=== PATIENT | male | born 1960 | race Caucasian/White ===

== ENCOUNTER 2021-02-11 15:29 | Inpatient (IN) | payer OTHER ==
[~2021-02-11] VITALS: Ht 175.3 cm; Wt 74.4 kg
[2021-02-11 16:16] LABS: MEAN CORPUSCULAR VOLUME 90.5 FL (78-98)
[2021-02-11 16:17] LABS: BASOPHILS # (AUTO) 0.1 X10'3 (0-0.2); BASOPHILS % (AUTO) 0.6 % (0-1); EOSINOPHILS % (AUTO) 0.1 % (0-6); HEMATOCRIT 39.4 % (42.0-52.0); HEMOGLOBIN 13.8 g/dl (14.0-17.9); LYMPHOCYTES # (AUTO) 1.4 X10'3 (1.1-4.8); LYMPHOCYTES % (AUTO) 7.4 % (21-51); MEAN CORPUSCULAR HEMOGLOBIN 31.6 PG (27.0-31.0); MEAN PLATELET VOLUME 7.7 FL (7.4-10.4); MONOCYTES # (AUTO) 0.9 X10'3 (0-0.9); MONOCYTES % (AUTO) 4.8 % (2-12); NEUTROPHILS # (AUTO) 16.7 X10'3 (1.8-7.7); NEUTROPHILS % (AUTO) 87.1 % (42-75); PLATELET COUNT 613 X10'3 (140-440); RED BLOOD COUNT 4.36 X10'6 (4.70-6.10); RED CELL DISTRIBUTION WIDTH 13.8 % (11.5-14.5); WHITE BLOOD COUNT 19.2 X10'3 (4.5-11.0)
[2021-02-11 16:28] LABS: D-DIMER 4.25 MG/L FEU (0-0.50)
[2021-02-11 16:32] LABS: ALANINE AMINOTRANSFERASE 74 U/L (12-78); ALBUMIN 2.5 G/DL (3.4-5.0); ALBUMIN/GLOBULIN RATIO 0.4 (1.1-1.5); ALKALINE PHOSPHATASE 112 IU/L (46-116); ANION GAP 11 (8-16); ASPARTATE AMINO TRANSFERASE 19 U/L (10-37); BILIRUBIN,TOTAL 0.9 MG/DL (0.1-1.0); BLOOD UREA NITROGEN 13 MG/DL (7-18); BUN/CREATININE RATIO 17.6 (5.4-32.0); CALCIUM 9.3 MG/DL (8.5-10.1); CHLORIDE 97 MMOL/L (99-107); CREATININE 0.74 MG/DL (0.60-1.10); GLUCOSE 124 MG/DL (70-104); POTASSIUM 3.9 MMOL/L (3.5-5.1); SODIUM 136 MMOL/L (135-145); TOTAL CARBON DIOXIDE 27.8 MMOL/L (24-32); TOTAL PROTEIN 8.3 G/DL (6.4-8.2); eGFR > 90 ML/MIN
[2021-02-11] MEDS ORDERED: iohexol 350MG/ML 100ml bottle IV ONE (19:49)
[2021-02-11] MEDS ORDERED: morphine 4 MG/ML inj SYRINge IV ONE (21:20)
[2021-02-11 21:40] LABS: CLARITY,URINE CLEAR (Clear); COLOR,URINE DARK YELLOW (Yellow); UA COLLECTION TYPE CLN CATCH MIDSTREAM
[2021-02-11 21:41] LABS: PROTEIN,URINE 300 mg/dl (Neg)
[2021-02-11 21:42] LABS: GLUCOSE, URINE NEGATIVE (Neg); KETONES,URINE 80 mg/dl (Neg); LEUKOCYTE ESTERASE ,URINE NEGATIVE (Neg); NITRITES, URINE NEGATIVE (Neg); OCCULT BLOOD,URINE NEGATIVE (Neg); UROBILINOGEN,URINE 0.2 E.U/dL (0.2-1.0)
[2021-02-11 21:46] LABS: HYALINE CASTS 0-3 /LPF (NEGATIVE)
[2021-02-11 21:47] LABS: CELLULAR CAST 0-4 /LPF (NEGATIVE); SQUAMOUS EPITHELIAL CELL,UR FEW /LPF (FEW)
[2021-02-11 21:48] LABS: BACTERIA,URINE FEW /HPF (Neg); RBC,URINE 0-2 /HPF (0-2)
[2021-02-11 21:49] LABS: WBC CLUMPS,URINE FEW /HPF (NEGATIVE)
[2021-02-11] MEDS ORDERED: NO HOME MEDS (22:10)
[2021-02-11] MEDS ORDERED: CefTRIAXone/D5W-Rocephin 1gm 50 ML IV ONE (22:20)
[2021-02-11] MEDS ORDERED: azithromycin/NS 500mg/250ml 250 ML IV ONE (22:20)
[2021-02-12] VITALS (9 sets, daily range): BP systolic 121–138; BP diastolic 72–85
[2021-02-12] MEDS ORDERED: potassium Cl 40MEQ/1/2NS 520ml 520 ML IV PRN ×2 (00:05)
[2021-02-12] MEDS ORDERED: mag hydrox/Alum hydrox/simeth 30ml oral suspension PO PRN (00:05)
[2021-02-12] MEDS ORDERED: acetaminophen 325mg tablet PO PRN (00:05)
[2021-02-12] MEDS: normal saline 1000ml 1,000 ML IV SCH ×3 (00:05→20:05)
[2021-02-12] MEDS ORDERED: potassium Cl 20 mEq SR tablet PO PRN ×2 (00:05)
[2021-02-12] MEDS ORDERED: ondansetron/PF 4mg/2ml inj IV PRN (00:05)
[2021-02-12] MEDS ORDERED: magnesium hydroxide 30ml (MOM) UD suspension PO PRN (00:05)
[2021-02-12 00:38] LABS: ALBUMIN,BODY FLUID 1.8 G/DL; LDH,BODY FLUID 850 U/L
[2021-02-12 01:51] LABS: BF WBC COUNT 805 /CU MM (0-1000); BFAPPEAR HAZY; BFCOLOR YELLOW; BFVOLUME 20 ML
[2021-02-12 01:52] LABS: BF RBC COUNT 520 /CU MM; LYMPHOCYTES,BODY FLUID 10 %; NEUTROPHILS,BODY FLUID 78 %
[2021-02-12 01:54] LABS: MONOCYTES,BODY FLUID 12 %
--- NOTE | 2021-02-12 02:35 | NUR ---
Received report from SUKUMAR Ga. Awaiting patient arrival to floor from ER.
--- NOTE | 2021-02-12 03:20 | NUR ---
Pt arrived to surgical floor at 0320 via gurney accompanied by CAMPGROUND ATTENDANT. Placed in RM 355A. Pt Aox3. Pt continued on 2LBNC. No apparent distress noted. Call light and items of frequent use within reach. Will continue to monitor.
--- NOTE | 2021-02-12 06:31 | NUR ---
Problems reprioritized. Patient report given, questions answered & plan of care reviewed with SUKUMAR Wiseman.
[2021-02-12] MEDS ORDERED: CefTRIAXone/D5W-Rocephin 1gm 50 ML IV SCH (08:00)
[2021-02-12] MEDS ORDERED: K and/or MAG REPLACEMENT MC SCH (08:00)
[2021-02-12] MEDS: docusate sod 100mg capsule PO SCH ×2 (08:08→20:23)
[2021-02-12] MEDS: azithromycin 250mg tablet PO SCH (08:09)
[2021-02-12] MEDS: heparin, porcine 5000 units/ml vial SQ SCH ×2 (08:17→20:22)
[2021-02-12] MEDS ORDERED: magnesium Cl slow-release 64mg tablet PO PRN (08:55)
[2021-02-12] MEDS ORDERED: magnesium 4gm in 100ml NS 100 ML IV PRN (08:55)
[2021-02-12] MEDS ORDERED: vancomycin/NS 1 GM ADD-VANTAGE 250 ML IV SCH (10:00)
--- NOTE | 2021-02-12 10:27 | NUR ---
Pt in procedure will hang Vanco when pt comes back
[2021-02-12] MEDS ORDERED: tPA-cathflo 2 MG/2 ml IV flush ONE (12:20)
--- NOTE | 2021-02-12 13:15 | NUR ---
Page Sent PAGER ID: [phone] MESSAGE: [phone] Tatianna EMMANUEL, PT HAD A REACTION TO VANCO, BROKE OUT IN A RASH. STOPPED THE VANCO. PT DOES NOT WANT BENEDRYL SAYS IT MAKES HIM FEEL WEIRD. AIRWAY IS OPEN AND PT STATES HE FEELS FINE. OMAIRA [id number]
[2021-02-12] MEDS ORDERED: cetirizine 10mg tablet PO PRN (13:35)
--- NOTE | 2021-02-12 15:08 | NUR ---
Page Sent PAGER ID: [phone] MESSAGE: [id number] EMMANUEL, PT ONLY HAS IV MORPHINE FOR PAIN. CAN I ORDER A PO NORCO 5 OR 10? HE HAS A PAIN 5/10. OMAIRA 0135
[2021-02-12] MEDS: morphine 2 MG/ML inj. syringe IV PRN ×2 (15:59→20:22)
[2021-02-12] MEDS: piperacillin/tazo 3.375gm/50ml 50 ML IV SCH (16:01)
--- NOTE | 2021-02-12 18:42 | NUR ---
Problems reprioritized. Patient report given, questions answered & plan of care reviewed with MOMO PATINO.
[2021-02-12] MEDS ORDERED: Permethrin 1% 59ml topical rinse TP ONE (18:45)
[2021-02-12] MEDS ORDERED: Permethrin Cream 60gm TP ONE (18:45)
[2021-02-12] MEDS: K and/or MAG REPLACEMENT MC SCH (20:00)
[2021-02-12] MEDS: lactobacillus rhamnosus 10,000 MMU CELLS/CAPSULE PO SCH (20:23)
[2021-02-13] VITALS: BP 122/76
[2021-02-13] MEDS: piperacillin/tazo 3.375gm/50ml 50 ML IV SCH ×3 (01:33→17:31)
[2021-02-13 06:53] LABS: BASOPHILS # (AUTO) 0.1 X10'3 (0-0.2); BASOPHILS % (AUTO) 0.9 % (0-1); EOSINOPHILS # (AUTO) 0.1 X10'3 (0-0.9); EOSINOPHILS % (AUTO) 0.9 % (0-6); HEMOGLOBIN 12.1 g/dl (14.0-17.9); LYMPHOCYTES # (AUTO) 1.4 X10'3 (1.1-4.8); MEAN CORPUSCULAR HEMOGLOBIN 30.9 PG (27.0-31.0); MEAN CORPUSCULAR HGB CONC 33.7 g/dL (33.0-36.5); MEAN CORPUSCULAR VOLUME 91.7 FL (78-98); MEAN PLATELET VOLUME 8.2 FL (7.4-10.4); MONOCYTES # (AUTO) 0.9 X10'3 (0-0.9); MONOCYTES % (AUTO) 9.4 % (2-12); NEUTROPHILS # (AUTO) 7.2 X10'3 (1.8-7.7); NEUTROPHILS % (AUTO) 74.8 % (42-75); PLATELET COUNT 477 X10'3 (140-440); RED BLOOD COUNT 3.93 X10'6 (4.70-6.10); RED CELL DISTRIBUTION WIDTH 14.1 % (11.5-14.5); WHITE BLOOD COUNT 9.7 X10'3 (4.5-11.0)
[2021-02-13 07:16] LABS: ALANINE AMINOTRANSFERASE 148 U/L (12-78); ALBUMIN 1.8 G/DL (3.4-5.0); ALBUMIN/GLOBULIN RATIO 0.4 (1.1-1.5); ALKALINE PHOSPHATASE 127 IU/L (46-116); ANION GAP 9 (8-16); ASPARTATE AMINO TRANSFERASE 64 U/L (10-37); BILIRUBIN,TOTAL 0.6 MG/DL (0.1-1.0); BLOOD UREA NITROGEN 14 MG/DL (7-18); BUN/CREATININE RATIO 23.7 (5.4-32.0); CALCIUM 8.3 MG/DL (8.5-10.1); CHLORIDE 101 MMOL/L (99-107); CREATININE 0.59 MG/DL (0.60-1.10); GLUCOSE 101 MG/DL (70-104); MAGNESIUM 2.2 MG/DL (1.5-2.4); PHOSPHORUS 3.7 MG/DL (2.3-4.5); SODIUM 138 MMOL/L (135-145); TOTAL CARBON DIOXIDE 28.2 MMOL/L (24-32); TOTAL PROTEIN 6.5 G/DL (6.4-8.2); eGFR > 90 ML/MIN
[2021-02-13 07:21] LABS: POTASSIUM 3.9 MMOL/L (3.5-5.1)
[2021-02-13] MEDS: azithromycin 250mg tablet PO SCH (07:55)
[2021-02-13] MEDS: docusate sod 100mg capsule PO SCH ×2 (07:55→20:00)
[2021-02-13] MEDS: heparin, porcine 5000 units/ml vial SQ SCH ×2 (07:58→20:05)
[2021-02-13] MEDS: morphine 2 MG/ML inj. syringe IV PRN ×2 (07:59→11:33)
[2021-02-13 08:00] VITALS: BP 130/78
[2021-02-13] MEDS: normal saline 1000ml 1,000 ML IV SCH ×2 (08:00→16:05)
[2021-02-13] MEDS: K and/or MAG REPLACEMENT MC SCH ×2 (08:00→19:05)
[2021-02-13] MEDS: lactobacillus rhamnosus 10,000 MMU CELLS/CAPSULE PO SCH ×2 (08:05→20:05)
[2021-02-13] MEDS ORDERED: VANCOMYCIN LEVEL IV ONE (09:30)
[2021-02-13] MEDS ORDERED: tPA-cathflo 2mg/2ml IV flush 4 MG in normal saline 100ml IV soln 50 ML ICATH ONE (09:30)
--- NOTE | 2021-02-13 10:15 | NUR ---
KAILA Adams administered the tpa into the chest tube then clamped it. He said to me to keep it off x 4 hours. Addendum: 02/13/21 at 1503 by Tulio Schroeder RN 14:15 - chest tube re-opened/unclamped at this time.
--- NOTE | 2021-02-13 10:58 | NUR ---
Paged Dr. Gold PAGER ID: [phone] MESSAGE: Surgical Tulio PATINO ext [phone]. RE: Everardo Loja. Patient in a lot of pain and Morphine 1mg IV is not due yet at this time. Can we start him on [place] or may be increase the frequency of Morphine?
[2021-02-13 11:00] VITALS: BP 136/78
--- NOTE | 2021-02-13 11:27 | NUR ---
Paged Dr. Gold PAGER ID: [phone] MESSAGE: Surgical Tulio RN ext [phone]. RE: Everardo Loja. Patient asking for pain medicine, he's hurting and Morphine 1mg IV is not due yet until 12:00 noon. Can I give him extra dose please?
--- NOTE | 2021-02-13 11:28 | NUR ---
Per Dr. Gold, I can give patient extra dose of Morphine 1mg IV at this time
[2021-02-13] MEDS ORDERED: HYDROcodone/acetaminophen 5mg/325mg tablet PO PRN (12:15)
[2021-02-13] MEDS ORDERED: HYDROcodone/acetaminophen 10/325mg tab PO PRN (12:15)
[2021-02-13] MEDS ORDERED: morphine 2 MG/ML inj. syringe IV PRN (12:15)
[2021-02-13 18:00] VITALS: BP 135/66
[2021-02-13] MEDS: morphine 4 MG/ML inj SYRINge IV PRN ×2 (18:02→22:06)
--- NOTE | 2021-02-13 18:36 | NUR ---
Patient in room [facility]. I have received report from ОЛЬГА PATINO and had the opportunity to ask questions and assume patient care.
[2021-02-14] VITALS: BP 119/75
[2021-02-14] MEDS: piperacillin/tazo 3.375gm/50ml 50 ML IV SCH ×2 (00:06→08:15)
[2021-02-14] MEDS: morphine 4 MG/ML inj SYRINge IV PRN ×5 (01:47→15:32)
[2021-02-14] MEDS: normal saline 1000ml 1,000 ML IV SCH ×2 (02:05→12:05)
[2021-02-14 06:04] LABS: BASOPHILS # (AUTO) 0.1 X10'3 (0-0.2); BASOPHILS % (AUTO) 0.6 % (0-1); EOSINOPHILS % (AUTO) 0.2 % (0-6); HEMATOCRIT 36.9 % (42.0-52.0); HEMOGLOBIN 12.7 g/dl (14.0-17.9); LYMPHOCYTES # (AUTO) 1.4 X10'3 (1.1-4.8); LYMPHOCYTES % (AUTO) 10.8 % (21-51); MEAN CORPUSCULAR HEMOGLOBIN 31.1 PG (27.0-31.0); MEAN CORPUSCULAR HGB CONC 34.5 g/dL (33.0-36.5); MEAN CORPUSCULAR VOLUME 90.1 FL (78-98); MEAN PLATELET VOLUME 8.4 FL (7.4-10.4); MONOCYTES # (AUTO) 1.3 X10'3 (0-0.9); MONOCYTES % (AUTO) 9.7 % (2-12); NEUTROPHILS # (AUTO) 10.2 X10'3 (1.8-7.7); NEUTROPHILS % (AUTO) 78.7 % (42-75); PLATELET COUNT 537 X10'3 (140-440); RED BLOOD COUNT 4.09 X10'6 (4.70-6.10); RED CELL DISTRIBUTION WIDTH 14.1 % (11.5-14.5)
[2021-02-14 06:38] LABS: ALBUMIN 1.8 G/DL (3.4-5.0); ALBUMIN/GLOBULIN RATIO 0.4 (1.1-1.5); ANION GAP 10 (8-16); ASPARTATE AMINO TRANSFERASE 47 U/L (10-37); BILIRUBIN,TOTAL 1.3 MG/DL (0.1-1.0); BLOOD UREA NITROGEN 13 MG/DL (7-18); BUN/CREATININE RATIO 18.3 (5.4-32.0); CALCIUM 8.5 MG/DL (8.5-10.1); CHLORIDE 96 MMOL/L (99-107); CREATININE 0.71 MG/DL (0.60-1.10); GLUCOSE 115 MG/DL (70-104); MAGNESIUM 2.1 MG/DL (1.5-2.4); PHOSPHORUS 3.8 MG/DL (2.3-4.5); POTASSIUM 3.9 MMOL/L (3.5-5.1); SODIUM 134 MMOL/L (135-145); TOTAL CARBON DIOXIDE 28.2 MMOL/L (24-32); TOTAL PROTEIN 6.5 G/DL (6.4-8.2); eGFR > 90 ML/MIN
[2021-02-14 06:39] LABS: ALANINE AMINOTRANSFERASE 200 U/L (12-78); ALKALINE PHOSPHATASE 138 IU/L (46-116)
[2021-02-14 07:00] VITALS: BP 111/78
[2021-02-14] MEDS: docusate sod 100mg capsule PO SCH ×2 (08:00→20:00)
[2021-02-14] MEDS: K and/or MAG REPLACEMENT MC SCH ×2 (08:00→20:30)
[2021-02-14] MEDS: lactobacillus rhamnosus 10,000 MMU CELLS/CAPSULE PO SCH ×2 (08:15→21:11)
[2021-02-14] MEDS: azithromycin 250mg tablet PO SCH (08:16)
[2021-02-14] MEDS: heparin, porcine 5000 units/ml vial SQ SCH ×2 (08:17→21:11)
[2021-02-14 11:00] VITALS: BP 111/70
[2021-02-14 12:00] VITALS: BP 111/70
[2021-02-14] MEDS ORDERED: bisacodyl 10mg suppository rectal RC PRN (14:10)
--- NOTE | 2021-02-14 18:15 | NUR ---
Problems reprioritized. Patient report given, questions answered & plan of care reviewed with Nina RN.
[2021-02-15 07:00] LABS: MEAN CORPUSCULAR VOLUME 89.7 FL (78-98); MEAN PLATELET VOLUME 8.3 FL (7.4-10.4)
[2021-02-15 07:02] LABS: BASOPHILS # (AUTO) 0.1 X10'3 (0-0.2); BASOPHILS % (AUTO) 1.2 % (0-1); EOSINOPHILS # (AUTO) 0.1 X10'3 (0-0.9); EOSINOPHILS % (AUTO) 0.8 % (0-6); HEMATOCRIT 33.2 % (42.0-52.0); HEMOGLOBIN 11.7 g/dl (14.0-17.9); LYMPHOCYTES # (AUTO) 1.7 X10'3 (1.1-4.8); LYMPHOCYTES % (AUTO) 16.2 % (21-51); MEAN CORPUSCULAR HEMOGLOBIN 31.6 PG (27.0-31.0); MEAN CORPUSCULAR HGB CONC 35.2 g/dL (33.0-36.5); MONOCYTES # (AUTO) 1.1 X10'3 (0-0.9); NEUTROPHILS # (AUTO) 7.4 X10'3 (1.8-7.7); NEUTROPHILS % (AUTO) 70.8 % (42-75); PLATELET COUNT 475 X10'3 (140-440); RED BLOOD COUNT 3.71 X10'6 (4.70-6.10); RED CELL DISTRIBUTION WIDTH 13.9 % (11.5-14.5); WHITE BLOOD COUNT 10.4 X10'3 (4.5-11.0)
[2021-02-15 07:18] LABS: ALANINE AMINOTRANSFERASE 170 U/L (12-78); ALBUMIN 1.6 G/DL (3.4-5.0); ALBUMIN/GLOBULIN RATIO 0.4 (1.1-1.5); ALKALINE PHOSPHATASE 134 IU/L (46-116); ANION GAP 5 (8-16); ASPARTATE AMINO TRANSFERASE 40 U/L (10-37); BILIRUBIN,TOTAL 0.7 MG/DL (0.1-1.0); BLOOD UREA NITROGEN 9 MG/DL (7-18); BUN/CREATININE RATIO 16.7 (5.4-32.0); CALCIUM 8.2 MG/DL (8.5-10.1); CHLORIDE 100 MMOL/L (99-107); CREATININE 0.54 MG/DL (0.60-1.10); GLUCOSE 104 MG/DL (70-104); MAGNESIUM 2.2 MG/DL (1.5-2.4); POTASSIUM 3.6 MMOL/L (3.5-5.1); SODIUM 137 MMOL/L (135-145); TOTAL CARBON DIOXIDE 31.6 MMOL/L (24-32); TOTAL PROTEIN 6.1 G/DL (6.4-8.2); eGFR > 90 ML/MIN
[2021-02-15 08:00] VITALS: BP 105/59
[2021-02-15] MEDS: K and/or MAG REPLACEMENT MC SCH ×2 (08:00→19:35)
[2021-02-15] MEDS: morphine 4 MG/ML inj SYRINge IV PRN ×3 (08:01→15:14)
[2021-02-15] MEDS: docusate sod 100mg capsule PO SCH ×2 (08:02→19:58)
[2021-02-15] MEDS: azithromycin 250mg tablet PO SCH (08:02)
[2021-02-15] MEDS: lactobacillus rhamnosus 10,000 MMU CELLS/CAPSULE PO SCH ×2 (08:02→19:55)
[2021-02-15] MEDS: heparin, porcine 5000 units/ml vial SQ SCH ×2 (08:03→19:51)
[2021-02-15] MEDS: levoFLOXACIN-Levaquin 500mg/D5 100 ML IV SCH (08:03)
[2021-02-15 12:00] VITALS: BP 118/70
[2021-02-15] MEDS: morphine 2 MG/ML inj. syringe IV PRN ×3 (17:55→21:57)
[2021-02-15 18:00] VITALS: BP 112/65
--- NOTE | 2021-02-15 18:58 | NUR ---
Patient in room [facility]. I have received report from MARY KATE PATINO and had the opportunity to ask questions and assume patient care.
[2021-02-16 00:36] VITALS: BP 110/60
[2021-02-16] MEDS: morphine 2 MG/ML inj. syringe IV PRN ×2 (04:24→11:10)
--- NOTE | 2021-02-16 06:28 | NUR ---
Problems reprioritized. Patient report given, questions answered & plan of care reviewed with MATTHEW PATINO.
[2021-02-16 07:06] LABS: BASOPHILS # (AUTO) 0.1 X10'3 (0-0.2); BASOPHILS % (AUTO) 0.7 % (0-1); EOSINOPHILS # (AUTO) 0.1 X10'3 (0-0.9); EOSINOPHILS % (AUTO) 0.6 % (0-6); HEMATOCRIT 32.9 % (42.0-52.0); HEMOGLOBIN 11.5 g/dl (14.0-17.9); LYMPHOCYTES # (AUTO) 1.6 X10'3 (1.1-4.8); LYMPHOCYTES % (AUTO) 15.6 % (21-51); MEAN CORPUSCULAR HEMOGLOBIN 31.4 PG (27.0-31.0); MEAN CORPUSCULAR HGB CONC 34.9 g/dL (33.0-36.5); MEAN CORPUSCULAR VOLUME 90.1 FL (78-98); MEAN PLATELET VOLUME 8.6 FL (7.4-10.4); MONOCYTES % (AUTO) 9.2 % (2-12); NEUTROPHILS # (AUTO) 7.7 X10'3 (1.8-7.7); NEUTROPHILS % (AUTO) 73.9 % (42-75); PLATELET COUNT 465 X10'3 (140-440); RED BLOOD COUNT 3.65 X10'6 (4.70-6.10); WHITE BLOOD COUNT 10.4 X10'3 (4.5-11.0)
[2021-02-16 07:12] LABS: ALANINE AMINOTRANSFERASE 155 U/L (12-78); ALBUMIN 1.6 G/DL (3.4-5.0); ALBUMIN/GLOBULIN RATIO 0.4 (1.1-1.5); ALKALINE PHOSPHATASE 149 IU/L (46-116); ANION GAP 5 (8-16); ASPARTATE AMINO TRANSFERASE 39 U/L (10-37); BILIRUBIN,TOTAL 0.5 MG/DL (0.1-1.0); BLOOD UREA NITROGEN 8 MG/DL (7-18); BUN/CREATININE RATIO 12.9 (5.4-32.0); CALCIUM 8.5 MG/DL (8.5-10.1); CHLORIDE 100 MMOL/L (99-107); CREATININE 0.62 MG/DL (0.60-1.10); GLUCOSE 103 MG/DL (70-104); MAGNESIUM 2.2 MG/DL (1.5-2.4); PHOSPHORUS 3.8 MG/DL (2.3-4.5); POTASSIUM 3.7 MMOL/L (3.5-5.1); SODIUM 134 MMOL/L (135-145); eGFR > 90 ML/MIN
[2021-02-16] MEDS: levoFLOXACIN-Levaquin 500mg/D5 100 ML IV SCH (07:56)
[2021-02-16] MEDS: docusate sod 100mg capsule PO SCH ×2 (07:57→19:20)
[2021-02-16] MEDS: azithromycin 250mg tablet PO SCH (07:57)
[2021-02-16] MEDS: lactobacillus rhamnosus 10,000 MMU CELLS/CAPSULE PO SCH ×2 (07:57→19:20)
[2021-02-16] MEDS: heparin, porcine 5000 units/ml vial SQ SCH ×2 (07:58→19:22)
[2021-02-16 08:00] VITALS: BP 109/65
[2021-02-16] MEDS: K and/or MAG REPLACEMENT MC SCH ×2 (08:00→20:00)
--- NOTE | 2021-02-16 08:22 | NUR ---
PAGER ID: [phone] MESSAGE: Good Morning! 355A, Sherri Loja. MS isn't working for his pain and he's getting it every 2 hrs, can we try Dilaudid? Thank you. Tiffany [id number]
--- NOTE | 2021-02-16 10:17 | NUR ---
PAGER ID: [phone] MESSAGE: [id number] Mr. Loja is requesting a change in pain medications. He has a chest tube in place. Tiffany [id number]
[2021-02-16 11:00] VITALS: BP 113/71
[2021-02-16] MEDS: HYDROmorphone inj. 0.5 MG/0.5 ML DISP.SYRIN IV PRN ×2 (13:14→19:22)
--- NOTE | 2021-02-16 14:02 | NUR ---
Flushed chest tube with 10cc NS. Patient tolerated well.
--- NOTE | 2021-02-16 14:04 | NUR ---
Chest xray ordered per note from Bryan BRIGHT.
--- NOTE | 2021-02-16 16:29 | NUR ---
Student documentation: I have reviewed all interventions, assessments performed and documented by Santos LANDRY of [facility]. Student Medication Administration: For all medication-pass' in the time frame of -295, all medication were reviewed, dispensed, administered and documented per hospital policy by Santos LANDRY of [facility].
--- NOTE | 2021-02-16 16:39 | NUR ---
Offered patient to walk in the [address] way, patient requested to walk before bedtime.
[2021-02-16 18:00] VITALS: BP 116/48
--- NOTE | 2021-02-16 18:22 | NUR ---
Patient in room [facility]. I have received report from Tiffany PATINO and Santos LANDRY and had the opportunity to ask questions and assume patient care.
[2021-02-17] VITALS: BP 94/61
[2021-02-17 05:56] LABS: BASOPHILS % (AUTO) 0.3 % (0-1); EOSINOPHILS # (AUTO) 0.1 X10'3 (0-0.9); EOSINOPHILS % (AUTO) 1.1 % (0-6); HEMATOCRIT 34.3 % (42.0-52.0); HEMOGLOBIN 11.8 g/dl (14.0-17.9); LYMPHOCYTES # (AUTO) 1.7 X10'3 (1.1-4.8); LYMPHOCYTES % (AUTO) 17.9 % (21-51); MEAN CORPUSCULAR HEMOGLOBIN 30.9 PG (27.0-31.0); MEAN CORPUSCULAR HGB CONC 34.4 g/dL (33.0-36.5); MONOCYTES # (AUTO) 0.8 X10'3 (0-0.9); MONOCYTES % (AUTO) 8.6 % (2-12); NEUTROPHILS # (AUTO) 6.9 X10'3 (1.8-7.7); NEUTROPHILS % (AUTO) 72.1 % (42-75); PLATELET COUNT 525 X10'3 (140-440); RED BLOOD COUNT 3.81 X10'6 (4.70-6.10); RED CELL DISTRIBUTION WIDTH 13.7 % (11.5-14.5); WHITE BLOOD COUNT 9.6 X10'3 (4.5-11.0)
[2021-02-17] MEDS: HYDROmorphone inj. 0.5 MG/0.5 ML DISP.SYRIN IV PRN ×4 (05:56→19:20)
[2021-02-17 06:15] LABS: ALANINE AMINOTRANSFERASE 159 U/L (12-78); ALBUMIN 1.7 G/DL (3.4-5.0); ALBUMIN/GLOBULIN RATIO 0.3 (1.1-1.5); ALKALINE PHOSPHATASE 206 IU/L (46-116); ANION GAP 5 (8-16); ASPARTATE AMINO TRANSFERASE 45 U/L (10-37); BILIRUBIN,TOTAL 0.5 MG/DL (0.1-1.0); BLOOD UREA NITROGEN 8 MG/DL (7-18); BUN/CREATININE RATIO 11.9 (5.4-32.0); CALCIUM 8.7 MG/DL (8.5-10.1); CHLORIDE 99 MMOL/L (99-107); CREATININE 0.67 MG/DL (0.60-1.10); GLUCOSE 103 MG/DL (70-104); MAGNESIUM 2.3 MG/DL (1.5-2.4); PHOSPHORUS 3.7 MG/DL (2.3-4.5); POTASSIUM 3.9 MMOL/L (3.5-5.1); SODIUM 133 MMOL/L (135-145); TOTAL PROTEIN 6.6 G/DL (6.4-8.2); eGFR > 90 ML/MIN
--- NOTE | 2021-02-17 06:30 | NUR ---
Received report on pt in 355A from Tico PATINO. Had the opportunity to ask questions and assumed pt care.
[2021-02-17 08:00] VITALS: BP 105/68
[2021-02-17] MEDS ORDERED: tPA-cathflo 2mg/2ml IV flush 4 MG in normal saline 100ml IV soln 50 ML ICATH ONE (08:00)
[2021-02-17] MEDS: docusate sod 100mg capsule PO SCH ×2 (08:00→19:18)
[2021-02-17] MEDS: K and/or MAG REPLACEMENT MC SCH ×2 (08:00→19:28)
[2021-02-17] MEDS: levoFLOXACIN-Levaquin 500mg/D5 100 ML IV SCH (09:24)
[2021-02-17] MEDS: lactobacillus rhamnosus 10,000 MMU CELLS/CAPSULE PO SCH ×2 (09:24→19:18)
[2021-02-17] MEDS: heparin, porcine 5000 units/ml vial SQ SCH ×2 (09:25→19:19)
[2021-02-17] MEDS: azithromycin 250mg tablet PO SCH (09:25)
--- NOTE | 2021-02-17 10:26 | NUR ---
Bryan BRIGHT in to TPA patients chest tube, allow to sit off suction for 4 hours then put back on suction. Patient tolerated well. Patient will be ambulating halls. Patient tolerated treatment well.
[2021-02-17 11:00] VITALS: BP 118/76
--- NOTE | 2021-02-17 14:21 | NUR ---
Initial: Pt admitted w/ chest pain and SOB, found to have empyema and sepsis per EMR. Pt also noted to have had Covid 3 weeks ago. Pt able to eat well on regular diet, mostly 100% of meals. Will provide double protein TID w/ meals to help meet increased protein needs. LB 02/15. Will continue to monitor. Recs: 1. Continue Regular diet as tolerated; double eggs WB, double meats WL/D 2. Bowel care per rx 3. Weekly wts Addendum: 02/17/21 at [address] Amended: Links added.
--- NOTE | 2021-02-17 18:15 | NUR ---
Patient in room [facility] 355. I have received report from SUKUMAR Craven and had the opportunity to ask questions and assume patient care.
--- NOTE | 2021-02-17 18:55 | NUR ---
Patient in room [facility] 355. I have received report from Merissa PATINO and had the opportunity to ask questions and assume patient care.
[2021-02-17 20:00] VITALS: BP 106/71
[2021-02-18] VITALS: BP 114/63
--- NOTE | 2021-02-18 01:17 | NUR ---
Pt refused to have 10ml normal saline flushed through chest tube.
--- NOTE | 2021-02-18 06:49 | NUR ---
Problems reprioritized. Patient report given, questions answered & plan of care reviewed with Bernice PATINO.
--- NOTE | 2021-02-18 06:51 | NUR ---
Problems reprioritized. Patient report given, questions answered & plan of care reviewed with SUKUMAR Queen.
--- NOTE | 2021-02-18 06:54 | NUR ---
Student documentation: I have reviewed and agree with all interventions, assessments performed and documented by [employer] student.
--- NOTE | 2021-02-18 07:00 | NUR ---
Patient in room [facility] 355. I have received report from Lexi PATINO and had the opportunity to ask questions and assume patient care.
--- NOTE | 2021-02-18 07:00 | NUR ---
Rounded after report, found pt's chest tube clamped off with pt stating he had done that before he got himself up to the bathroom. Educated pt on chest tube procedure/POC and safety and to please use the call light for assist next time. Pt verbalized understanding and will call for assist. Will continue to monitor. learning and development analyst advised.
[2021-02-18 08:00] VITALS: BP 110/67
[2021-02-18] MEDS: K and/or MAG REPLACEMENT MC SCH ×2 (08:00→19:38)
[2021-02-18] MEDS: levoFLOXACIN-Levaquin 500mg/D5 100 ML IV SCH (08:51)
[2021-02-18] MEDS: heparin, porcine 5000 units/ml vial SQ SCH ×2 (08:52→20:49)
[2021-02-18] MEDS: lactobacillus rhamnosus 10,000 MMU CELLS/CAPSULE PO SCH ×2 (08:52→20:49)
[2021-02-18] MEDS: docusate sod 100mg capsule PO SCH ×2 (08:52→20:49)
[2021-02-18] MEDS: azithromycin 250mg tablet PO SCH (08:52)
--- NOTE | 2021-02-18 11:04 | NUR ---
On rounding, found pt had changed into clothing, at bedside, and stating that he had disconnected his PIV to put on his shirt and needed me to make sure IV was running right. Pt and educated on PIV use/safety/POC/need for sterility and to please call for assist next time. Pt/ verbalized understanding and stated they would call for assist. Pt and also verbazliing unhappiness with Dr Lockhart's care/manner. Dr Lockhart aware. wash oil cooler operator aware. Will continue to monitor.
[2021-02-18 11:11] LABS: BASOPHILS # (AUTO) 0.1 X10'3 (0-0.2); EOSINOPHILS # (AUTO) 0.1 X10'3 (0-0.9); HEMOGLOBIN 12.7 g/dl (14.0-17.9); MEAN PLATELET VOLUME 7.7 FL (7.4-10.4)
[2021-02-18 11:13] LABS: BASOPHILS % (AUTO) 0.7 % (0-1); EOSINOPHILS % (AUTO) 1.2 % (0-6); HEMATOCRIT 38.3 % (42.0-52.0); LYMPHOCYTES # (AUTO) 1.8 X10'3 (1.1-4.8); LYMPHOCYTES % (AUTO) 23.1 % (21-51); MEAN CORPUSCULAR HEMOGLOBIN 30.3 PG (27.0-31.0); MEAN CORPUSCULAR HGB CONC 33.2 g/dL (33.0-36.5); MEAN CORPUSCULAR VOLUME 91.3 FL (78-98); MONOCYTES # (AUTO) 0.9 X10'3 (0-0.9); MONOCYTES % (AUTO) 10.9 % (2-12); NEUTROPHILS % (AUTO) 64.1 % (42-75); PLATELET COUNT 640 X10'3 (140-440); WHITE BLOOD COUNT 7.8 X10'3 (4.5-11.0)
[2021-02-18 11:25] LABS: ALANINE AMINOTRANSFERASE 149 U/L (12-78); ALBUMIN/GLOBULIN RATIO 0.4 (1.1-1.5); ALKALINE PHOSPHATASE 144 IU/L (46-116); ANION GAP 7 (8-16); ASPARTATE AMINO TRANSFERASE 38 U/L (10-37); BILIRUBIN,TOTAL 0.4 MG/DL (0.1-1.0); BLOOD UREA NITROGEN 8 MG/DL (7-18); BUN/CREATININE RATIO 12.5 (5.4-32.0); CALCIUM 8.9 MG/DL (8.5-10.1); CHLORIDE 102 MMOL/L (99-107); CREATININE 0.64 MG/DL (0.60-1.10); GLUCOSE 92 MG/DL (70-104); MAGNESIUM 2.2 MG/DL (1.5-2.4); PHOSPHORUS 3.6 MG/DL (2.3-4.5); POTASSIUM 3.9 MMOL/L (3.5-5.1); SODIUM 140 MMOL/L (135-145); TOTAL CARBON DIOXIDE 30.9 MMOL/L (24-32); TOTAL PROTEIN 7.5 G/DL (6.4-8.2); eGFR > 90 ML/MIN
[2021-02-18 12:00] VITALS: BP 131/75
[2021-02-18] MEDS ORDERED: HYDROcodone/acetaminophen 5mg/325mg tablet PO PRN (12:45)
[2021-02-18] MEDS ORDERED: HYDROcodone/acetaminophen 10/325mg tab PO PRN (12:45)
[2021-02-18] MEDS ORDERED: HYDROmorphone inj. 0.5 MG/0.5 ML DISP.SYRIN IV PRN (12:45)
--- NOTE | 2021-02-18 15:01 | NUR ---
Pt has also refused NS flush of chest tube as ordered, throughout this shift despite education. director of advertising sales aware. MD aware. Will continue to monitor.
--- NOTE | 2021-02-18 16:58 | NUR ---
Dr Husain at pt's bedside, aware of pt's refusal of NS flushes to Chest tubes, output of 30cc, serosanguinous. No new orders. Will continue to monitor.
--- NOTE | 2021-02-18 18:15 | NUR ---
Patient in room [facility]. I have received report from SUKUMAR Queen and had the opportunity to ask questions and assume patient care.
--- NOTE | 2021-02-18 18:36 | NUR ---
Problems reprioritized. Patient report given, questions answered & plan of care reviewed with Lexi PATINO.
--- NOTE | 2021-02-18 18:58 | NUR ---
Patient in room [facility] 355. I have received report from Bernice PATINO and had the opportunity to ask questions and assume patient care. Pt sitting up in bed with at bedside. No signs of distress, will continue to monitor.
--- NOTE | 2021-02-18 19:00 | NUR ---
Pt ate dinner that family brought in.
--- NOTE | 2021-02-18 19:50 | NUR ---
Found pt IV disconnected on 2 separate occasions. Pt stated they did not need to be connected to an IV for 20 mls/hr when they are drinking plenty of fluids. Pt refusing IVF at this time.
[2021-02-18 20:00] VITALS: BP 123/69
--- NOTE | 2021-02-19 01:04 | NUR ---
pt refused midnight vitals
--- NOTE | 2021-02-19 06:23 | NUR ---
Problems reprioritized. Patient report given, questions answered & plan of care reviewed with SUKUMAR Batlazar.
--- NOTE | 2021-02-19 06:25 | NUR ---
Student documentation: I have reviewed and agree with all interventions, assessments performed and documented by [employer] student.
--- NOTE | 2021-02-19 06:38 | NUR ---
Problems reprioritized. Patient report given, questions answered & plan of care reviewed with Delaney PATINO.
[2021-02-19 06:54] LABS: BASOPHILS # (AUTO) 0.1 X10'3 (0-0.2); BASOPHILS % (AUTO) 1.1 % (0-1); EOSINOPHILS # (AUTO) 0.1 X10'3 (0-0.9); EOSINOPHILS % (AUTO) 1.9 % (0-6); HEMATOCRIT 34.1 % (42.0-52.0); HEMOGLOBIN 11.9 g/dl (14.0-17.9); LYMPHOCYTES # (AUTO) 2.2 X10'3 (1.1-4.8); LYMPHOCYTES % (AUTO) 28.5 % (21-51); MEAN CORPUSCULAR HEMOGLOBIN 31.2 PG (27.0-31.0); MEAN CORPUSCULAR HGB CONC 34.9 g/dL (33.0-36.5); MEAN CORPUSCULAR VOLUME 89.4 FL (78-98); MEAN PLATELET VOLUME 8.3 FL (7.4-10.4); MONOCYTES # (AUTO) 0.7 X10'3 (0-0.9); MONOCYTES % (AUTO) 9.2 % (2-12); NEUTROPHILS # (AUTO) 4.5 X10'3 (1.8-7.7); NEUTROPHILS % (AUTO) 59.3 % (42-75); PLATELET COUNT 520 X10'3 (140-440); RED BLOOD COUNT 3.82 X10'6 (4.70-6.10); RED CELL DISTRIBUTION WIDTH 13.7 % (11.5-14.5); WHITE BLOOD COUNT 7.6 X10'3 (4.5-11.0)
--- NOTE | 2021-02-19 06:58 | NUR ---
Patient in room [facility]. I have received report from SUKUMAR Elliott and had the opportunity to ask questions and assume patient care.
[2021-02-19 07:00] VITALS: BP 134/67
[2021-02-19 07:14] LABS: D-DIMER 9.07 MG/L FEU (0-0.50)
[2021-02-19 07:55] LABS: ALANINE AMINOTRANSFERASE 138 U/L (12-78); ALBUMIN 1.8 G/DL (3.4-5.0); ALBUMIN/GLOBULIN RATIO 0.4 (1.1-1.5); ALKALINE PHOSPHATASE 126 IU/L (46-116); ANION GAP 9 (8-16); ASPARTATE AMINO TRANSFERASE 42 U/L (10-37); BILIRUBIN,TOTAL 0.2 MG/DL (0.1-1.0); BLOOD UREA NITROGEN 11 MG/DL (7-18); BUN/CREATININE RATIO 17.2 (5.4-32.0); C-REACTIVE PROTEIN 8.32 MG/DL (0.0-0.5); CALCIUM 8.8 MG/DL (8.5-10.1); CHLORIDE 105 MMOL/L (99-107); CREATININE 0.64 MG/DL (0.60-1.10); GLUCOSE 100 MG/DL (70-104); LACTATE DEHYDROGENASE 148 U/L (85-227); MAGNESIUM 2.2 MG/DL (1.5-2.4); POTASSIUM 3.9 MMOL/L (3.5-5.1); SODIUM 139 MMOL/L (135-145); TOTAL CARBON DIOXIDE 24.9 MMOL/L (24-32); TOTAL PROTEIN 6.7 G/DL (6.4-8.2); eGFR > 90 ML/MIN
[2021-02-19] MEDS: K and/or MAG REPLACEMENT MC SCH ×2 (08:00→11:04)
[2021-02-19] MEDS: docusate sod 100mg capsule PO SCH ×2 (08:10→20:00)
[2021-02-19] MEDS: lactobacillus rhamnosus 10,000 MMU CELLS/CAPSULE PO SCH ×2 (08:11→20:00)
[2021-02-19] MEDS: heparin, porcine 5000 units/ml vial SQ SCH ×2 (08:12→20:00)
[2021-02-19] MEDS: levoFLOXACIN-Levaquin 500mg/D5 100 ML IV SCH (08:13)
[2021-02-19] MEDS: normal saline 1000ml 1,000 ML IV SCH (08:14)
[2021-02-19 09:54] VITALS: BP 141/70
--- NOTE | 2021-02-19 10:38 | NUR ---
Patient refusing to have nursing flush chest tube with 10ml as ordered. Patient states, "I don't trust anyone else but Bryan to do it. The nurses have been playing with it and I don't think we're all on the same page." Received from HS Rn that patient has been unhooking self from IV and also removing chest tube from suction. Patient IV seen unhooked this morning at shift change rounding but patient allowed to have IVF infusing as ordered and abx. All new IV tubing placed. Educated patient to not unhook self from IV as well as not turning suction off from chest tube. Patient verbalized understanding and states he has not and will not be doing so, however later notified by another RN that patient suction to chest tube was turned off. Suction to chest tube turned back on. Dr. Lockhart was in to see patient and made aware.
[2021-02-19 11:00] VITALS: BP 140/79
--- NOTE | 2021-02-19 12:02 | NUR ---
Bryan Crabtree in to see patient and remove chest tube.
--- NOTE | 2021-02-19 16:14 | NUR ---
PAGER ID: [phone] MESSAGE: [id number]- Everardo Loja-Patient gathering his belongings and states he is leaving at [address] Macias and Dr. Person have not been in to see him. Chest tube was dc'd by Bryan at approx. 1200. Thank you- Delaney [phone]
--- NOTE | 2021-02-19 16:54 | NUR ---
Patient states he does not plan on leaving AMA at this time. He states his will be here at 1700 but he will not be leaving at that time. He is wanting to wait to see Dr. Husain for consultation as there are two options which will be either no surgery and dc or if he requires surgery he will want a second opinion.
--- NOTE | 2021-02-19 18:42 | NUR ---
Problems reprioritized. Patient report given, questions answered & plan of care reviewed with Chanda Elliott.
--- NOTE | 2021-02-19 19:04 | NUR ---
Patient in room [facility] 355. I have received report from Delaney PATINO and had the opportunity to ask questions and assume patient care. Pt sitting on the side of the bed with his at bedside waiting for a consultation with Dr. Husain.
[2021-02-19 20:00] VITALS: BP 137/83
[2021-02-20] VITALS: BP 137/81
--- NOTE | 2021-02-20 06:31 | NUR ---
Patient in room [facility] 355. I have received report from SUKUMAR MEAD and had the opportunity to ask questions and assume patient care.
--- NOTE | 2021-02-20 06:32 | NUR ---
Problems reprioritized. Patient report given, questions answered & plan of care reviewed with Delaney PATINO.
[2021-02-20 07:30] LABS: BASOPHILS # (AUTO) 0.1 X10'3 (0-0.2); BASOPHILS % (AUTO) 0.9 % (0-1); EOSINOPHILS # (AUTO) 0.2 X10'3 (0-0.9); EOSINOPHILS % (AUTO) 2.6 % (0-6); HEMATOCRIT 35.7 % (42.0-52.0); LYMPHOCYTES # (AUTO) 1.9 X10'3 (1.1-4.8); LYMPHOCYTES % (AUTO) 26.7 % (21-51); MEAN CORPUSCULAR HEMOGLOBIN 30.5 PG (27.0-31.0); MEAN CORPUSCULAR HGB CONC 33.5 g/dL (33.0-36.5); MEAN PLATELET VOLUME 8.1 FL (7.4-10.4); MONOCYTES # (AUTO) 0.7 X10'3 (0-0.9); MONOCYTES % (AUTO) 10.1 % (2-12); NEUTROPHILS # (AUTO) 4.4 X10'3 (1.8-7.7); NEUTROPHILS % (AUTO) 59.7 % (42-75); PLATELET COUNT 508 X10'3 (140-440); RED BLOOD COUNT 3.92 X10'6 (4.70-6.10); RED CELL DISTRIBUTION WIDTH 13.7 % (11.5-14.5); WHITE BLOOD COUNT 7.3 X10'3 (4.5-11.0)
[2021-02-20 07:39] VITALS: BP 120/69
[2021-02-20] MEDS: docusate sod 100mg capsule PO SCH (08:00)
[2021-02-20] MEDS: K and/or MAG REPLACEMENT MC SCH (08:00)
[2021-02-20] MEDS: levoFLOXACIN-Levaquin 500mg/D5 100 ML IV SCH (08:02)
[2021-02-20] MEDS: normal saline 1000ml 1,000 ML IV SCH (08:03)
[2021-02-20 08:05] LABS: D-DIMER 9.02 MG/L FEU (0-0.50)
[2021-02-20] MEDS: lactobacillus rhamnosus 10,000 MMU CELLS/CAPSULE PO SCH (08:06)
[2021-02-20] MEDS: heparin, porcine 5000 units/ml vial SQ SCH (08:07)
[2021-02-20 08:35] LABS: ALANINE AMINOTRANSFERASE 111 U/L (12-78); ALBUMIN/GLOBULIN RATIO 0.4 (1.1-1.5); ALKALINE PHOSPHATASE 105 IU/L (46-116); ANION GAP 8 (8-16); ASPARTATE AMINO TRANSFERASE 27 U/L (10-37); BILIRUBIN,TOTAL 0.3 MG/DL (0.1-1.0); BLOOD UREA NITROGEN 11 MG/DL (7-18); BUN/CREATININE RATIO 15.3 (5.4-32.0); C-REACTIVE PROTEIN 4.62 MG/DL (0.0-0.5); CALCIUM 8.8 MG/DL (8.5-10.1); CHLORIDE 105 MMOL/L (99-107); CREATININE 0.72 MG/DL (0.60-1.10); GLUCOSE 96 MG/DL (70-104); LACTATE DEHYDROGENASE 154 U/L (85-227); MAGNESIUM 2.2 MG/DL (1.5-2.4); PHOSPHORUS 4.5 MG/DL (2.3-4.5); SODIUM 140 MMOL/L (135-145); TOTAL CARBON DIOXIDE 26.6 MMOL/L (24-32); TOTAL PROTEIN 6.8 G/DL (6.4-8.2); eGFR > 90 ML/MIN
[2021-02-20 12:31] VITALS: BP 123/72
[2021-02-20] MEDS ORDERED: ALBU8.5H17 INH (12:36)
[2021-02-20] MEDS ORDERED: LACT1CAP26 PO (12:36)
[2021-02-20] MEDS ORDERED: LEVO750T46 PO (12:36)
--- NOTE | 2021-02-20 13:22 | NUR ---
Discussed with patient dc instructions and new prescription. Patient verbalized understanding of discharge instructions and stated he had no questions. Patient DC'd with all personal belongings escorted to car in wheelchair by x2 staff and .
== END 2021-02-20 13:13 | disposition home or self-care (01) | DRG 871 ==
LOC: ER 15:30 → ED HOLD 02-12 00:07 → SUR 3N 02-12 03:15
PROVIDERS: ADMIT Internal Medicine; ATTEND Family Medicine
PROC: 0W9B3ZZ Drainage of Left Pleural Cavity, Percutaneous Approach (ICD-10-PCS; 2021-02-11)
PROC: B3201ZZ Computerized Tomography (CT Scan) of Thoracic Aorta using Low Osmolar Contrast (ICD-10-PCS; 2021-02-11)
PROC: B32S1ZZ Computerized Tomography (CT Scan) of Right Pulmonary Artery using Low Osmolar Contrast (ICD-10-PCS; 2021-02-11)
PROC: B32T1ZZ Computerized Tomography (CT Scan) of Left Pulmonary Artery using Low Osmolar Contrast (ICD-10-PCS; 2021-02-11)
PROC: 0W9B30Z Drainage of Left Pleural Cavity with Drainage Device, Percutaneous Approach (ICD-10-PCS; principal; 2021-02-12)
PROC: 3E0L3GC Introduction of Other Therapeutic Substance into Pleural Cavity, Percutaneous Approach (ICD-10-PCS; 2021-02-12)
PROC: 3E0L3GC Introduction of Other Therapeutic Substance into Pleural Cavity, Percutaneous Approach (ICD-10-PCS; 2021-02-13)
PROC: 3E0L3GC Introduction of Other Therapeutic Substance into Pleural Cavity, Percutaneous Approach (ICD-10-PCS; 2021-02-17)
DX: A41.9 Sepsis, unspecified organism (principal); J86.9 Pyothorax without fistula; J18.9 Pneumonia, unspecified organism; J90 Pleural effusion, not elsewhere classified; U09.9 Post COVID-19 condition, unspecified; I48.91 Unspecified atrial fibrillation; Z20.822 Contact with and (suspected) exposure to COVID-19; Z88.8 Allergy status to other drugs, medicaments and biological substances; K59.00 Constipation, unspecified
CPT/HCPCS: 32557; 36415; 71045; 71046; 71250; 71275; 80053; 81001; 82042; 83605; 83615; 83735; 83880; 84100; 84145; 84439; 84443; 84484; 85025; 85379; 86140; 87040; 87070; 87081; 87635; 89051; 93005; 96365; 96375; 99285; G0378; J0456; J0696; J1170; J1644; J1956; J2270; J2543; J2997; J3370; J7030; Q9967; U0003